=== PATIENT | male | born 1975 | race Caucasian/White ===

== ENCOUNTER 2017-01-18 19:07 | Emergency (ER) | payer BC ==
--- NOTE | ~2017-01-18 | CT4 ---
[facility] A Service [facility] RADIOLOGY TEXT RESULTS PATIENT: RENE CAO LOCATION: SED : 77 UNIT #: [id number] AGE: [address]: Uri Mares MD SEX: M ORDER DR: [id number] [place] [id number] [id number] E MR#: [id number] Acc #: [id number] NAME: RENE CAO : 1975 SEX: M STUDY DATE/TIME: 01/18/2017 20:29 UNIT: SED ROOM: STUDY DESCRIPTION: CT Abd and Pelv Wo Cont Attending Physician: Uri Mares M.D. Ordering Physician: Uri Mares M.D. Primary Care Physician: Primary Care Physician No MEDICAL IMAGING REPORT This report is preliminary unless electronic signature is present. EXAM CT abdomen and pelvis without contrast, date of study 01/18/[address] abdomen and pelvis without contrast, with multiplanar reformats. This CT exam was performed with one or more of the following radiation dose reduction techniques: Automatic exposure control, adjustment of mA and/or kV according to patient size, and iterative reconstruction. HISTORY Lower abdominal pain and nausea for 1 day. FINDINGS The lung bases are normal. ABDOMEN: Unenhanced images of the liver and gallbladder and spleen and pancreas are normal. The kidneys and adrenal glands are normal. The aorta is normal in caliber. PELVIS: The appendix is normal. There is no pelvic mass, inflammatory change or abnormal fluid collection. There is no hernia or bowel obstruction. There is mild spinal degenerative change but no acute bony abnormality. IMPRESSION Negative CT abdomen and pelvis. No renal or bowel or biliary obstruction. Normal appendix, no acute abnormality. Dictated by... [facility] A Service [facility] RADIOLOGY TEXT RESULTS PATIENT: RENE CAO LOCATION: SED : 77 UNIT #: [id number] AGE: [address]: Uri Mares MD SEX: M ORDER DR: Duncan E. Byrne, M.D. THIS IS AN ELECTRONICALLY VERIFIED REPORT Duncan Byrne M.D. at 01/20/2017 9:43 AM TEV/kailee TD: 01/19/2017 00:46 JOB #: [id number] MEDICAL IMAGING REPORT Page 1 of 1
[~2017-01-18 19:07] MED LIST: ACCUPRIL PO; ACETAMINOPHEN PO; ALBUTEROL17 GM INH; ALPRAZOLAM PO; ALTACE; BENTYL10 MG DOB; BENTYL20 MG PO; CARAFATE; CELEXA20 MG PO; COZAAR PO; CRESTOR5 MG PO; DARVOCET-N 1001 TAB; DIAZEPAM PO; DICLOFENAC; DIOVAN160 MG PO; DIPHENHYDRAMINE PO; DOXYCYCLINE PO; FAMOTIDINE PO; FIORICET PO; FLEXERIL; FLOMAX0.4 M1 PO; GABAPENTIN600 MG PO; HYDROCHLOROTH12.5 MG PO; HYDROCHLOROTHIA25 GM; HYDROCHLOROTHIA25 MG PO; HYDROCODON-ACE1 EAC7 PO; IBUPROFEN800 MG PO; IMODIUM PO; LIPITOR; LIPITOR PO; LISINOPRIL-HCTZ1 T14 PO; LISINOPRIL10 MG PO; LISINOPRIL20 MG PO; LORTAB; LORTAB 10-3251 EACH; LORTAB 10/500 T1 TAB PO; LORTAB 7.5-5001 TAB PO; METHADONE HCL10 MG PO; METHADONE PO; NEURONTIN; NEURONTIN600 MG PO; NORVASC PO; NORVASC10 MG; NORVASC10 MG PO; OMEPRAZOLE20 M2 PO; PATIENT'S PHARMACY; PERCOCET 10/31 UDTA1 PO; PERCOCET 10/3251 TAB PO; PERCOCET 7.5/321 TAB; PHENERGAN W/CO120 ML PO; PHENERGAN25 M1 PO; PHENERGAN50 MG/SUPP RC; PREDNISONE PO; PRINIVIL10 MG PO; PROTONIX PO; SENNA LAXATIVE8.6 M1 PO; SIMVASTATIN40 MG PO; SKELAXIN PO; TORADOL10 MG PO; VALIUM2 MG PO; VICODIN 5/500 T1 TAB PO; VITAMIN D50000 UNIT PO; VOLTAREN75 MG PO; XANAX0.5 MG PO; ZANTAC PO; ZESTORETIC 10-1 EAC1; ZESTRIL10 M1; ZOFRAN PO
[2017-01-18 19:46] LABS: BASOPHIL% 0.2 % (0-2.5); EOSINOPHIL% 0.5 % (0.0-7.0); HEMATOCRIT 43.8 % (38.0-50.0); HEMOGLOBIN 15.2 gm/dL (13.0-16.0); LYMPHOCYTE# 1.1 X10e3 (1.0-3.5); LYMPHOCYTE% 14.1 % (17.0-45.0); MEAN CELL VOLUME 89.5 FL (83-96); MEAN CORPUSCULAR HEMOGLOBIN 31.1 PG (28-34); MEAN CORPUSCULAR HGB CONC 34.8 g/dL (30-36); MEAN PLATELET VOLUME 8.2 FL (6.5-11.5); MONOCYTE# 0.5 X10e3 (0-1.0); MONOCYTE% 6.3 % (3.0-12.0); NEUTROPHIL% 78.9 % (40-75); PLATELET COUNT 208 X10e3 (140-420); RED CELL DISTRIBUTION WIDTH 12.8 % (11.0-15.5); WHITE BLOOD COUNT 7.7 X10e3 (4.0-10.5)
[2017-01-18 19:48] LABS: DIFF IND NO
[2017-01-18 20:02] LABS: ALBUMIN SERUM 4.9 g/dL (3.5-5.0); BILIRUBIN, DIRECT 0.1 mg/dL (0.0-0.2); BILIRUBIN,INDIRECT 0.4 mg/dL (0.0-0.9); BILIRUBIN,TOTAL 0.5 mg/dL (0.2-2.0); CALCIUM SERUM 9.7 mg/dL (8.4-10.2); GLOM FILT RATE Estimated 93.7 mL/min (>60); PROTEIN TOTAL SERUM 8.4 g/dL (6.0-8.3)
[2017-01-18 20:15] LABS: URINE SOURCE CLEAN CATCH
[2017-01-18 20:17] LABS: URINE APPEARANCE CLEAR; URINE BILIRUBIN NEG (NEG); URINE BLOOD NEG (NEG); URINE COLOR YELLOW; URINE GLUCOSE NEG (NORM); URINE KETONE NEG (NEG); URINE LEUKOCYTE ESTERASE NEG (NEG); URINE NITRATE NEG (NEG); URINE PH 8.5 (5-8); URINE PROTEIN NEG (NEG); URINE SPECIFIC GRAVITY 1.015 (1.003-1.035); URINE UROBILINOGEN 0.2 MG/DL (NORM)
[2017-01-18 20:18] LABS: MICRO INDICATED? NO
== END 2017-01-18 21:36 | disposition home or self-care (01) ==
LOC: SED 19:07
PROVIDERS: Emergency Medicine
DX: R10.32 Left lower quadrant pain (principal); R11.2 Nausea with vomiting, unspecified; K21.9 Gastro-esophageal reflux disease without esophagitis; K50.90 Crohn's disease, unspecified, without complications; F17.210 Nicotine dependence, cigarettes, uncomplicated; Z79.899 Other long term (current) drug therapy; Z88.8 Allergy status to other drugs, medicaments and biological substances
CPT/HCPCS: 36415; 74176; 80048; 80076; 81003; 82150; 83690; 85025; 96374; 96375; 99284; J1885; J2270; J2405